=== PATIENT | female | born 1945 | race Caucasian/White ===

== ENCOUNTER → 2017-03-03 | Outpatient (CLI) | payer MEDICARE, MEDICAID | END | disposition home or self-care (01) | LOC: MW.CHENT 09:55 | PROVIDERS: ATTEND Otolaryngology | DX: J31.0 Chronic rhinitis (principal) | CPT/HCPCS: 31231; 36415; 82784; 82785; 82787; 86003; 86317; 99204 ==

== ENCOUNTER → 2017-03-17 | Outpatient (CLI) | payer MEDICARE, OTHER | LOC: MW.CHENT 13:15 | PROVIDERS: ATTEND Otolaryngology | DX: J32.9 Chronic sinusitis, unspecified (principal) | CPT/HCPCS: G0463 ==

== ENCOUNTER → 2017-03-24 | Outpatient (CLI) | payer MEDICARE, OTHER ==
[2017-03-24 08:53] LABS: CHLORIDE,CL 104 mmol/L (98-110); SODIUM,NA 139 mmol/L (136-146)
== END | disposition home or self-care (01) ==
LOC: MW.CHFP 07:33
PROVIDERS: ATTEND Student in an Organized Health Care Education/Training Program
DX: I10 Essential (primary) hypertension (principal); E03.9 Hypothyroidism, unspecified
CPT/HCPCS: 36415; 80053; 80061; 84443; 99214

== ENCOUNTER 2020-02-21 06:27 | Day surgery (SDC) | payer MEDICARE, OTHER ==
[2020-02-21] MEDS ORDERED: Lidocaine 2% 5 ML SDV ONE (06:52)
[2020-02-21] MEDS ORDERED: Propofol 200 MG/20 ML SDV ONE (06:53)
[2020-02-21] MEDS ORDERED: fentaNYL 100 MCG/2 ML SDV ONE (06:53)
[2020-02-21] MEDS ORDERED: Lactated Ringers 1,000 ML IV SCH ×2 (07:15→08:45)
--- NOTE | 2020-02-21 07:35 | PCM.PREANE ---
Preanesthetic Assessment - Anesthesia/Transfusion/Family Hx Anesthesia History: Prior Anesthesia Without Reaction Family History of Anesthesia Reaction: No Transfusion History: No Prior Transfusion(s) - Review of Systems General: No Symptoms Pulmonary: No Symptoms Cardiovascular: No Symptoms Gastrointestinal: No Symptoms Neurological: No Symptoms Other: Reports: None - Physical Assessment NPO Status Date: 02/21/20 NPO Status Time: 06:00 Vital Signs: Last Vital Signs Temp 97.5 F 02/21/20 06:42 Pulse 59 L 02/21/20 06:42 Resp 14 02/21/20 06:42 BP 94/45 L 02/21/20 06:42 Pulse Ox 97 02/21/20 06:42 Height: 5 ft 3 in Weight: 83.007 kg ASA Class: 2 Mental Status: Alert & Oriented x3 Airway Class: Mallampati = 2 Dentition: Reports: Normal Dentition ROM/Head Extension: Full Lungs: Clear to Auscultation, Normal Respiratory Effort Cardiovascular: Regular Rate, Regular Rhythm - Allergies Allergies/Adverse Reactions: Allergies Allergy/AdvReac Type Severity Reaction Status Date / Time No Known Allergies Allergy Verified 02/15/20 11:35 - Blood Blood Available: No - Anesthesia Plan Pre-Op Medication Ordered: None - Acknowledgements Anesthesia Type Planned: General Anesthesia Pt an Appropriate Candidate for the Planned Anesthesia: Yes Alternatives and Risks of Anesthesia Discussed w Pt/Guardian: Yes Pt/Guardian Understands and Agrees with Anesthesia Plan: Yes Additional Comments: PMH: sceening, pmh htn PLAN: mac PreAnesthesia Questionnaire HEENT History: Reports: Allergic Rhinitis, Cataract Other HEENT History: wears glasses Cardiovascular History: Reports: High Cholesterol, Hypertension, Other (See Below) Other Cardiovascular History: hx of "palpitations" Gastrointestinal History: Reports: Colon Polyp J[employer]EL[employer] SAL[employer]ERSON History: Reports: Musculoskeletal History: Reports: Fracture, Osteoporosis Other Musculoskeletal History: hx of fx foot- casted Endocrine/Metabolic History: Reports: Hypothyroidism, Obesity/BMI 30+ - Past Surgical History Head Surgeries/Procedures: Reports: None HEENT Surgical History: Reports: Cataract Surgery Cardiovascular Surgical History: Reports: Coronary Artery Stent Other Cardiovascular Surgeries/Procedures: Angioplasty with one stent placed GI Surgical History: Reports: Appendectomy, Colonoscopy Musculoskeletal Surgical History: Reports: Carpal Tunnel, Other (See Below) Other Musculoskeletal Surgeries/Procedures:: "Right thumb joint replaced" - SUBSTANCE USE Smoking Status *Q: Never Smoker Recreational Drug Use History: No - HOME MEDS Home Medications: Home Meds Aspirin [Adult Low Dose Aspirin EC] 81 mg PO DAILY 02/15/20 [History] Calcium Carbonate/Vitamin D3 [Calcium 600 + Vit D 200] 2 tab PO BID 02/15/20 [ History] Cetirizine [ZyrTEC] 10 mg PO DAILY 02/15/20 [History] Fish Oil/[place]-3 Fatty Acids [Fish Oil 1,000 MG] 1 gm PO BID 02/15/20 [History] Fluticasone Propionate [Flonase Allergy Relief] 2 spray NASBOTH BID 02/15/20 [ History] Levothyroxine Sodium 88 mcg PO DAILY 02/15/20 [History] Lisinopril [Zestril] 20 mg PO QAM 02/15/20 [History] Magnesium Oxide [Magnesium] 400 mg PO DAILY 02/15/20 [History] Metoprolol Tartrate 25 mg PO BID 02/15/20 [History] Mirabegron [Myrbetriq] 25 mg PO DAILY 02/15/20 [History] Multivitamin with Minerals [Multiple Vitamin] 1 tab PO DAILY 02/15/20 [History] Rosuvastatin Calcium 20 mg PO DAILY 02/15/20 [History] - CURRENT (IN HOUSE) MEDS Current Meds: Current Medications Lactated Ringer's (Ringers, Lactated) 1,000 mls @ 100 mls/hr IV ASDIRECTED [facility] Last Admin: 02/21/20 07:23 Dose: 100 mls/hr Discontinued Medications Fentanyl (Sublimaze) Confirm Administered Dose 100 mcg .ROUTE .STK-MED ONE Stop: 02/21/20 06:54 Lidocaine (Xylocaine-Mpf 2%) Confirm Administered Dose 5 ml .ROUTE .STK-MED ONE Stop: 02/21/20 06:53 Propofol (Diprivan 20 Ml) Confirm Administered Dose 400 mg .ROUTE .STK-MED ONE Stop: 02/21/20 06:54
--- NOTE | 2020-02-21 08:34 | PCM.OPNOTE ---
- General Post-Op/Procedure Note Date of Surgery/Procedure: 02/21/20 Operative Procedure(s): Colonoscopy Pre Op Diagnosis: Change in bowel habits. Personal history of colon polyps. Post-Op Diagnosis: Pancolonic diverticulosis Anesthesia Technique: MAC (ASA II) Primary Surgeon: Greg Lutz Condition: Good Free Text/Narrative:: DICTATION 317371 CPT CODE 58331
--- NOTE | 2020-02-21 08:41 | PCM.POSTAN ---
POST ANESTHESIA ASSESSMENT - VITAL SIGNS Vital Signs: Last Vital Signs Temp 36.4 C 02/21/20 06:42 Pulse 59 L 02/21/20 06:42 Resp 14 02/21/20 06:42 BP 94/45 L 02/21/20 06:42 Pulse Ox 97 02/21/20 06:42 - RESPIRATORY Respiratory Status: Respiratory Rate WNL - CARDIOVASCULAR CV Status: Pulse Rate WNL - GASTROINTESTINAL GI Status: No Symptoms - PAIN Pain Score: 1 (Cramps) - POST OP HYDRATION Hydration Status: Adequate & Stable - OBSERVATIONS Free Text/Narrative:: Doing well. No problems post.
--- NOTE | 2020-02-21 11:19 | PCM48HPAN ---
Post Anesthesia Note - EVALUATION WITHIN 48HRS OF ANESTHETIC Vital Signs in Normal Range: Yes Patient Participated in Evaluation: Yes Respiratory Function Stable: Yes Airway Patent: Yes Cardiovascular Function Stable: Yes Hydration Status Stable: Yes Pain Control Satisfactory: Yes Nausea and Vomiting Control Satisfactory: Yes Mental Status Recovered: Yes Vital Signs: Last Vital Signs Temp 96.1 F L 02/21/20 08:45 Pulse 52 L 02/21/20 09:24 Resp 14 02/21/20 09:24 BP 100/52 L 02/21/20 09:24 Pulse Ox 97 02/21/20 09:24
--- NOTE | 2020-02-21 12:21 | OR ---
SURGEON: Greg Lutz M.D. DATE OF PROCEDURE: 02/21/2020 OPERATION PERFORMED: Colonoscopy. PRIMARY SURGEON: Greg Lutz M.D. ANESTHESIA: MAC. ASA CLASSIFICATION: II. PREOPERATIVE DIAGNOSES: 1. Change in bowel habits. 2. Personal history of colon polyps. POSTOPERATIVE DIAGNOSIS: Pancolonic diverticulosis. DESCRIPTION OF PROCEDURE: The patient was taken to the endoscopy room and positioned on the endoscopy table in the left lateral decubitus position. Time-out was called for appropriate identification of the patient and procedure. Monitored anesthesia care was provided. Colonoscope was inserted into the rectum and advanced with minimal difficulty to the cecum. The cecum was identified by internal landmarks and external pressure. Despite multiple maneuvers, we were never able to retroflex the colonoscope in the cecum. Colonoscope was slowly withdrawn. The cecum, ascending colon, hepatic flexure, transverse colon, splenic flexure, descending colon, sigmoid colon, and rectum were very well visualized. No tumors or polyps were seen. The patient does have pancolonic diverticulosis with diverticula even being noted in the ascending colon. Once the colonoscope was withdrawn to the rectum, it was retroflexed to visualize the anal orifice from above. No tumors, polyps, or acute hemorrhoidal changes are noted. The colonoscope was then straightened, the rectum aspirated, and the colonoscope removed. The patient tolerated the procedure well and was taken to recovery room in stable condition. PAIGE / SANDEE /[id number]
== END 2020-02-21 09:40 | disposition home or self-care (01) ==
LOC: MW.SDS 06:27
PROVIDERS: ATTEND Surgery
DX: K57.30 Diverticulosis of large intestine without perforation or abscess without bleeding (principal); I10 Essential (primary) hypertension; E78.00 Pure hypercholesterolemia, unspecified; E03.9 Hypothyroidism, unspecified; E78.5 Hyperlipidemia, unspecified; Z79.82 Long term (current) use of aspirin; Z86.010 Personal history of colon polyps; Z79.890 Hormone replacement therapy; Z79.899 Other long term (current) drug therapy; Z80.0 Family history of malignant neoplasm of digestive organs; Z98.890 Other specified postprocedural states; Z90.49 Acquired absence of other specified parts of digestive tract
CPT/HCPCS: 45378; J2001; J2704; J3010; J7120; 00811

== ENCOUNTER 2025-05-16 10:57 | Day surgery (SDC) | payer MEDICARE, OTHER ==
[2025-05-16] MEDS: Lactated Ringers 1,000 ML IV SCH (11:25)
[2025-05-16] MEDS ORDERED: propofoL 500 MG/50 ML 50 ML ONE (11:26)
[2025-05-16] MEDS ORDERED: Lactated Ringers 1,000 ML IV SCH (12:45)
[2025-05-16] MEDS ORDERED: Lidocaine 4% 5 ML Amp ONE (12:48)
== END 2025-05-16 13:30 | disposition home or self-care (01) ==
LOC: MW.SDS 10:57
PROVIDERS: ATTEND Surgery
DX: Z12.11 Encounter for screening for malignant neoplasm of colon (principal); K57.30 Diverticulosis of large intestine without perforation or abscess without bleeding; Z86.0100 Personal history of colon polyps, unspecified; I10 Essential (primary) hypertension; E78.00 Pure hypercholesterolemia, unspecified; I25.10 Atherosclerotic heart disease of native coronary artery without angina pectoris; Z85.038 Personal history of other malignant neoplasm of large intestine; Z79.899 Other long term (current) drug therapy
CPT/HCPCS: 00811; 99100; J2704; J3490; J7120